=== PATIENT | male | born 1975 | race Two or more races ===

== ENCOUNTER 2019-12-01 18:18 | Emergency (ER) | payer SELFPAY ==
[~2019-12-01] VITALS: Ht 167.6 cm; Wt 88.0 kg
[2019-12-01] MEDS ORDERED: MAALOX/HYOSCYAMINE/LIDOCAINE 45 ML BTL ONE (19:51)
[2019-12-01 19:52] VITALS: BP 126/81
[2019-12-01] MEDS ORDERED: MAALOX/HYOSCYAMINE/LIDOCAINE 45 ML BTL PO ONE (20:00)
[2019-12-01] MEDS ORDERED: AZITHROMYCIN 500 MG TABLET ONE (20:37)
[2019-12-01] MEDS ORDERED: AZITHROMYCIN 500 MG TABLET PO ONE (21:00)
== END 2019-12-01 21:03 | disposition home or self-care (01) ==
LOC: ED 18:59
DX: J15.9 Unspecified bacterial pneumonia (principal)
CPT/HCPCS: 71045; 99283